=== PATIENT | male | born 1950 | race Caucasian/White ===

== ENCOUNTER 2019-04-26 15:38 | Emergency (ER) | payer MEDICARE ==
[2019-04-26] MEDS ORDERED: Lidocaine 1% w/Epinephrine 1:100K 20 ML VIAL ONE (15:50)
[2019-04-26] MEDS ORDERED: Adacel (T-DAP) 0.5 ML SYRINGE ONE (16:35)
[2019-04-26] MEDS ORDERED: Triple Antibiotic Oint 1 GM Packet ONE (16:35)
== END 2019-04-26 17:20 | disposition home or self-care (01) ==
LOC: MADERS 15:38
DX: S50.852A Superficial foreign body of left forearm, initial encounter (principal); E78.5 Hyperlipidemia, unspecified; E78.00 Pure hypercholesterolemia, unspecified; I10 Essential (primary) hypertension; Z87.891 Personal history of nicotine dependence; Z79.899 Other long term (current) drug therapy; Z79.82 Long term (current) use of aspirin; W45.8XXA Other foreign body or object entering through skin, initial encounter
CPT/HCPCS: 10120; 90471; 90715; J2001